=== PATIENT | female | born 1995 | race Caucasian/White ===

== ENCOUNTER 2019-05-22 06:47 | Emergency (ER) | payer MEDICAID ==
[~2019-05-22] VITALS: Ht 167.6 cm; Wt 135.0 kg
[2019-05-22 06:51] VITALS: BP 136/99
[2019-05-22] MEDS ORDERED: CYCL-1 PO (07:13)
[2019-05-22] MEDS ORDERED: IBUP-1986 PO (07:13)
[2019-05-22] MEDS ORDERED: ketorolac trometh inj. 60 MG/2 ML VIAL IM ONE (07:15)
== END 2019-05-22 07:36 | disposition home or self-care (01) ==
LOC: ER 06:48
DX: M54.6 Pain in thoracic spine (principal); Z88.1 Allergy status to other antibiotic agents; Z88.8 Allergy status to other drugs, medicaments and biological substances; X50.1XXA Overexertion from prolonged static or awkward postures, initial encounter; Y93.89 Activity, other specified; Y92.89 Other specified places as the place of occurrence of the external cause; Y99.9 Unspecified external cause status
CPT/HCPCS: 96372; 99283; J1885

== ENCOUNTER 2019-07-30 09:49 | Emergency (ER) | payer MEDICAID ==
[~2019-07-30] VITALS: Ht 167.6 cm; Wt 113.0 kg
[~2019-07-30 09:49] MED LIST: CYCL-1 PO; IBUP-1986 PO
[2019-07-30] MEDS ORDERED: folic acid 1mg/0.2ml inj IV ONE (10:30)
[2019-07-30] MEDS ORDERED: LORazepam 2 mg/ml vial IV ONE (10:30)
[2019-07-30] MEDS ORDERED: thiamine 100mg/ml 2ml inj. IV ONE (10:30)
[2019-07-30] MEDS ORDERED: normal saline 1000ML IV soln IV ONE (10:30)
[2019-07-30 10:52] LABS: BASOPHILS # (AUTO) 0.1 X10'3 (0-0.2); BASOPHILS % (AUTO) 1.9 % (0-1); EOSINOPHILS % (AUTO) 0.9 % (0-6); HEMOGLOBIN 16.6 g/dl (12.0-16.0); LYMPHOCYTES # (AUTO) 1.7 X10'3 (1.1-4.8); LYMPHOCYTES % (AUTO) 33.4 % (21-51); MEAN CORPUSCULAR HEMOGLOBIN 33.4 PG (27.0-31.0); MEAN CORPUSCULAR HGB CONC 35.4 g/dL (33.0-36.5); MEAN CORPUSCULAR VOLUME 94.3 FL (78-98); MEAN PLATELET VOLUME 9.6 FL (7.4-10.4); MONOCYTES # (AUTO) 0.4 X10'3 (0-0.9); MONOCYTES % (AUTO) 7.9 % (2-12); NEUTROPHILS # (AUTO) 2.9 X10'3 (1.8-7.7); NEUTROPHILS % (AUTO) 55.9 % (42-75); PLATELET COUNT 191 X10'3 (140-440); RED BLOOD COUNT 4.99 X10'6 (4.20-5.60); RED CELL DISTRIBUTION WIDTH 14.2 % (11.5-14.5); WHITE BLOOD COUNT 5.2 X10'3 (4.5-11.0)
[2019-07-30 11:12] LABS: ALANINE AMINOTRANSFERASE 136 U/L (12-78); ALBUMIN 4.1 G/DL (3.4-5.0); ALKALINE PHOSPHATASE 97 IU/L (46-116); ANION GAP 18 (8-16); ASPARTATE AMINO TRANSFERASE 118 U/L (10-37); BILIRUBIN,TOTAL 0.6 MG/DL (0.1-1.0); BLOOD UREA NITROGEN 4 MG/DL (7-18); CALCIUM 9.2 MG/DL (8.5-10.1); CHLORIDE 97 MMOL/L (99-107); GLUCOSE 114 MG/DL (70-104); POTASSIUM 3.4 MMOL/L (3.5-5.1); SODIUM 137 MMOL/L (135-145); TOTAL CARBON DIOXIDE 22.5 MMOL/L (24-32); TOTAL PROTEIN 8.3 G/DL (6.4-8.2); eGFR 87 ML/MIN
[2019-07-30] MEDS ORDERED: potassium Cl 20 mEq SR tablet PO STA (11:22)
[2019-07-30] MEDS ORDERED: LORA-269 PO (11:26)
[2019-07-30] MEDS ORDERED: ONDA4TAB6 PO (11:26)
[2019-07-30] MEDS ORDERED: GABA300C PO (11:26)
[2019-07-30 12:21] VITALS: BP 123/93
== END 2019-07-30 12:22 | disposition home or self-care (01) ==
LOC: ER 09:49
DX: I10 Essential (primary) hypertension (principal); F10.239 Alcohol dependence with withdrawal, unspecified; R42 Dizziness and giddiness; Z88.2 Allergy status to sulfonamides; Z60.2 Problems related to living alone; Z88.1 Allergy status to other antibiotic agents; Z79.899 Other long term (current) drug therapy
CPT/HCPCS: 36415; 80053; 84484; 85025; 85610; 93005; 96361; 96374; 96375; 99284; J2060; J3411; J3490; J7030

== ENCOUNTER 2019-11-10 06:45 | Emergency (ER) | payer MEDICAID ==
[~2019-11-10] VITALS: Ht 167.6 cm; Wt 118.2 kg
[~2019-11-10 06:45] MED LIST changes: +GABA300C PO; +LORA-269 PO; +ONDA4TAB6 PO
[2019-11-10 06:48] VITALS: BP 165/101
[2019-11-10] MEDS ORDERED: METH-360 PO (07:14)
[2019-11-10] MEDS ORDERED: acetaminophen 325mg tablet PO ONE (07:15)
[2019-11-10] MEDS ORDERED: ketorolac tromethamine 15mg/ml inj. IM ONE (08:20)
[2019-11-11] MEDS ORDERED: ARIP20TA4 (16:53)
[2019-11-11] MEDS ORDERED: METO25TA6 PO (16:53)
[2019-11-11] MEDS ORDERED: TRAZ-251 PO (16:53)
[2019-11-11] MEDS ORDERED: HYDR25TA4 PO (16:53)
[2019-11-11] MEDS ORDERED: SERT25TA5 PO (16:53)
== END 2019-11-10 08:41 | disposition home or self-care (01) ==
LOC: ER 06:46
DX: R07.89 Other chest pain (principal); R05 Cough; F17.200 Nicotine dependence, unspecified, uncomplicated; Z60.2 Problems related to living alone; Z88.2 Allergy status to sulfonamides; Z88.8 Allergy status to other drugs, medicaments and biological substances; Z79.899 Other long term (current) drug therapy
CPT/HCPCS: 96372; 99283; J1885

== ENCOUNTER 2020-04-05 23:51 | Emergency (ER) | payer MEDICAID ==
[~2020-04-05] VITALS: Ht 167.6 cm; Wt 110.0 kg
[~2020-04-05 23:51] MED LIST changes: -CYCL-1 PO; -GABA300C PO; +HYDR25TA4 PO; -IBUP-1986 PO; -LORA-269 PO; +METO25TA6 PO; +MULT-25 PO; +PANT40TA4 PO; +SERT25TA5 PO; +TRAZ-251 PO; +folic acid tablet PO; +thiamine tablet PO
[2020-04-05 23:55] VITALS: BP 138/87
== END 2020-04-06 00:45 | disposition home or self-care (01) ==
LOC: ER 23:51
DX: F15.10 Other stimulant abuse, uncomplicated (principal); R00.0 Tachycardia, unspecified; I10 Essential (primary) hypertension; J45.909 Unspecified asthma, uncomplicated; F12.90 Cannabis use, unspecified, uncomplicated; F17.200 Nicotine dependence, unspecified, uncomplicated; Z72.820 Sleep deprivation; Z60.2 Problems related to living alone; Z88.2 Allergy status to sulfonamides; Z88.1 Allergy status to other antibiotic agents; Z79.899 Other long term (current) drug therapy
CPT/HCPCS: 99283